=== PATIENT | male | born 1955 | race Caucasian/White ===

== ENCOUNTER 2020-11-01 21:59 | Inpatient (IN) | payer MEDICARE, OTHER ==
[~2020-11-01] VITALS: Ht 182.9 cm; Wt 75.3 kg
[2020-11-01] MEDS ORDERED: IV NORMAL SALINE 1000 ML BAG IV ONE (22:30)
[2020-11-01] MEDS ORDERED: DILTIAZEM HCL 25 MG IV IV ONE ×2 (22:30→22:45)
--- NOTE | 2020-11-01 22:30 | NUR ---
Pt aox1, Pt. began having rapid heart rate 180-190's with fluctuating blood pressure first hypotension then hypertension with spo2 desatting to 84% on RA. Placed pt. on 2L oxygen NC. MD Blake notified immediately.
[2020-11-01] MEDS ORDERED: NOREPINEPHRINE BITARTRATE 4 MG/4 ML VIAL IV ONE (22:31)
[2020-11-01] MEDS ORDERED: DILTIAZEM HCL 50 MG IV ONE (22:31)
[2020-11-01] MEDS ORDERED: AMIODARONE HCL 150 MG/3 ML VIAL IV ONE ×2 (22:55→23:04)
[2020-11-01 22:57] LABS: HEMATOCRIT 40.7 % (36.7-47.1); MEAN CORPUSCULAR HEMOGLOBIN 31.6 uug (23.8-33.4); MEAN CORPUSCULAR VOLUME 95.5 fL (73.0-96.2); PLATELET COUNT (AUTO) 154 K/uL (152-348)
[2020-11-01 23:09] LABS: CREATININE 1.6 mg/dL (0.6-1.3); POTASSIUM 4.2 mmol/L (3.5-5.1)
[2020-11-01] MEDS ORDERED: HEPARIN/D5W 25000 UNITS/500 ML BAG IV ONE (23:15)
[2020-11-01 23:21] LABS: BILIRUBIN,DIRECT 0.1 mg/dL (0.0-0.2); BILIRUBIN,TOTAL 0.4 mg/dL (0.2-1.0); TOTAL PROTEIN, SERUM 6.9 g/dL (6.4-8.2)
[2020-11-01 23:24] LABS: *OCCULT BLOOD STOOL NEGATIVE (NEGATIVE)
[2020-11-01] MEDS ORDERED: HEPARIN SODIUM,PORCINE 5,000 UNITS/ML VIAL ONE (23:32)
[2020-11-01] MEDS: HEPARIN/D5W DRIP 500 ML IV PRN (23:33)
[2020-11-01] MEDS ORDERED: HEPARIN/D5W DRIP 500 ML ONE (23:33)
--- NOTE | 2020-11-01 23:40 | NUR ---
Pt. converted to NSR, BP stabilized, and pt. maintaining o2 sat >94 with 3L nasal cannula. Monitoring patient closely.
[2020-11-01] MEDS ORDERED: LORAZEPAM 2 MG/1 ML VIAL IV ONE (23:45)
[2020-11-01] MEDS ORDERED: LORAZEPAM 2 MG/1 ML VIAL ONE (23:46)
[2020-11-01] MEDS ORDERED: NICO1PAT35 TD (23:50)
[2020-11-01] MEDS ORDERED: ASCO500T10 PO (23:50)
[2020-11-01] MEDS ORDERED: MAGN400O6 PO (23:50)
[2020-11-01] MEDS ORDERED: NA P133E RC (23:50)
[2020-11-01] MEDS ORDERED: BENZ1TAB7 PO (23:50)
[2020-11-01] MEDS ORDERED: LEVE500T9 PO (23:50)
[2020-11-01] MEDS ORDERED: MIRT-93 PO (23:50)
[2020-11-01] MEDS ORDERED: BISA10SU61 RC (23:50)
[2020-11-01] MEDS ORDERED: MULT-416 PO (23:50)
[2020-11-01] MEDS ORDERED: MAG-151 PO (23:50)
[2020-11-01] MEDS ORDERED: prostat PO (23:50)
[2020-11-01] MEDS ORDERED: ACET-2154 PO (23:50)
[2020-11-01] MEDS ORDERED: ZINC1CAP2 PO (23:50)
[2020-11-01] MEDS ORDERED: FERR325T28 PO (23:50)
[2020-11-01] MEDS ORDERED: PHEN100C4 PO (23:50)
[2020-11-01] MEDS ORDERED: MENT3.5O TP (23:50)
--- NOTE | 2020-11-01 23:50 | NUR ---
Pt became agitated, was yelling for his mother and saying "please stop giving me heroin, I don't want heroin" and gesturing to his IVs. I attempted to reorient pt, explained he was in the hospital, he wasn't getting heroine, he was safe and getting medication because he was sick. Pt. was unable to comprehend. MD Blake was notified.
[2020-11-02] VITALS (18 sets, daily range): BP systolic 99–165; BP diastolic 51–80
[2020-11-02] MEDS ORDERED: OLANZAPINE 10 MG VIAL IM ONE ×2
--- NOTE | 2020-11-02 00:05 | NUR ---
Pt. attempted to pull on IV's and his telemetry monitor. He then pulled off nasal cannula and when I attempted to put it back on the patient threw up his arms and yelled "Get the fuck away from me bitch, I will shoot you, I have nothing left to lose." MD Blake made aware.
[2020-11-02] MEDS ORDERED: LORAZEPAM 2 MG/1 ML VIAL IV ONE (00:30)
[2020-11-02] MEDS ORDERED: LORAZEPAM 2 MG/1 ML VIAL ONE (00:35)
--- NOTE | 2020-11-02 01:20 | NUR ---
Pt. no longer agitated, able to remain calm and will be taken to CT.
--- NOTE | 2020-11-02 01:25 | NUR ---
Pt taken to CT by myself and the ekg monitor, with continuous heart monitoring in place. Pt. vitals currently stable.
[2020-11-02] MEDS ORDERED: AMIODARONE HCL IV 150 MG in IV DEXTROSE 5% 100 ML IV ONE (01:30)
[2020-11-02] MEDS ORDERED: AMIODARONE HCL IV 450 MG in IV DEXTROSE 5% 250 ML IV PRN (01:30)
--- NOTE | 2020-11-02 01:40 | NUR ---
Pt returned from CT. Resting in bed, no changes in condition. VSS. Will continue to monitor.
--- NOTE | 2020-11-02 01:45 | NUR ---
Dr. Duarte at bedside to evaluate patient.
[2020-11-02] MEDS ORDERED: ACETAMINOPHEN 325 MG TABLET PO PRN (02:00)
[2020-11-02] MEDS ORDERED: IV NS 1000 ML 1,000 ML IV PRN (02:00)
[2020-11-02] MEDS ORDERED: Z GUARD REMEDY PASTE 57 GM TUBE TOP PRN ×2 (02:00→04:00)
[2020-11-02] MEDS ORDERED: MAGNESIUM HYDROXIDE 30 ML LIQUID UDC PO PRN (02:00)
[2020-11-02] MEDS ORDERED: ONDANSETRON 4 MG/2 ML VIAL IV PRN (02:00)
[2020-11-02] MEDS ORDERED: FLEET ENEMA 133 ML BOTTLE RC PRN (02:00)
[2020-11-02] MEDS ORDERED: BISACODYL 10 MG SUPP.RECT RC PRN (02:00)
[2020-11-02] MEDS ORDERED: DEXTROSE 50% 50 ML DISP.SYRIN IV PRN (02:15)
[2020-11-02] MEDS ORDERED: SWABABLE VALVE TRANSFER SET EA MC ONE (02:39)
[2020-11-02] MEDS ORDERED: IV NORMAL SALINE 250 ML IV ONE (02:40)
[2020-11-02] MEDS ORDERED: IOHEXOL 350 100 ML INFUS..BTL ONE (02:40)
--- NOTE | 2020-11-02 02:44 | NUR ---
Gave report to GAVIOTA Hansen. Pt to go to CCU room 2.
[2020-11-02] MEDS: HEPARIN/D5W DRIP 500 ML IV PRN ×3 (03:15→17:28)
[2020-11-02] MEDS: AMIODARONE HCL IV 450 MG in IV DEXTROSE 5% 250 ML IV PRN ×2 (03:15→15:21)
--- NOTE | 2020-11-02 03:15 | NUR ---
Received patient from ER via [facility]. Patient is A/Ox1. Patient is here for LLE DVT, but was also found to have bilateral lung PE. Patient also went into a-fib RVR in the ER. Patient arrived with left forearm AC running Heparin @1328units/hr. Patient has right AC 18g that is infiltrated this I removed. SR on the monitor, BP stable, 98% on 2L NC, no SOB or signs of distress. Patient has numerous wounds, intact blisters on the mid-back, sacrum, and R&L buttocks. Bilateral R&L heel DTI, left lateral foot DTI, Left lateral malleolus DTI, Left medial malleolus scab. Patient arrived soaked in urine, patient bathed and placed in a gown. Dean catheter inserted, new 18g peripheral IV line placed in the right wrist running amiodarone @1mg/min. PICC line ordered, KCI mattress ordered, Wound consult ordered.
[2020-11-02] MEDS ORDERED: HEPARIN SODIUM,PORCINE 5,000 UNITS/ML VIAL IV ONE (06:00)
[2020-11-02] MEDS: PANTOPRAZOLE SODIUM 40 MG TABLET.DR PO SCH (06:42)
--- NOTE | 2020-11-02 07:00 | NUR ---
Assumed care of patient at this time Heparin was not scanned - call from pharmacy to scan and input units/hr in IV Spreadsheet - Running at 1478 units/hr at this time
[2020-11-02] MEDS: BLOOD SUGAR DIAGNOSTIC 1 EACH STRIP VI SCH ×4 (08:03→21:27)
[2020-11-02] MEDS: PHENYTOIN SODIUM EXTENDED 100 MG CAPSULE.SA PO SCH ×3 (09:00→17:06)
[2020-11-02] MEDS: NICOTINE 21 MG/24HR PATCH TD SCH (09:00)
[2020-11-02] MEDS: levETIRAcetam 500 MG TABLET PO SCH ×2 (09:29→17:14)
[2020-11-02] MEDS: ASCORBIC ACID 500 MG TABLET PO SCH ×3 (09:29→17:10)
[2020-11-02] MEDS: ZINC SULFATE 220 MG CAPSULE PO SCH (09:29)
[2020-11-02] MEDS ORDERED: HEPARIN SODIUM,PORCINE 5,000 UNITS/ML VIAL IV PRN ×2 (10:00)
--- NOTE | 2020-11-02 10:02 | NUR ---
WOUND CARE CONSULT: PT PRESENTS WITH MULTIPLE DEEP TISSUE INJURIES TO FEET AND HEELS WELL SCARRING TO SACRUM, LOW BACK AND MIDBACK, PRESENT ON ADMISSION. DPM CONSULT CALLED TO DR MICHAEL. RECOMMENDATIONS MADE FOR SKIN PROTECTION. DISCUSSED WITH NURSING STAFF. FIRST STEP LOW AIRLOSS MATTRESS IS ON ORDER. MD IN AGREEMENT WITH PLAN OF CARE. RAM CATH NOTED.
--- NOTE | 2020-11-02 10:47 | NUR ---
Dr. Benitez in unit to assess patient
[2020-11-02] MEDS: DOXYCYCLINE HYCLATE IV 100 MG in IV DEXTROSE 5% 100 ML IV SCH ×2 (11:13→21:22)
[2020-11-02] MEDS: INSULIN REGULAR, HUMAN 300 UNIT/3 ML VIAL SQ PRN (11:56)
[2020-11-02 12:11] LABS: ABG BASE EXCESS 1.6 mmol/L; ABG HCO3 25.5 mmol/L; ABG PCO2 37.5 mmHg (35.0-45.0); ABG SITE LEFT RADIAL; ABG TOTAL HEMOGLOBIN 11.9 G/dL (13.5-18.0); COHb 0.9 % (0.5-1.5); MetHb 0.3 % (0.0-1.5); O2Hb 96.1 % (94.0-97.0); VENT MODE Nasal Cannula
[2020-11-02] MEDS: QUETIAPINE FUMARATE 25 MG TABLET PO PRN ×2 (12:16→23:16)
--- NOTE | 2020-11-02 17:53 | NUR ---
Per pharmacy, because PTT was "no change" at 1200 - next PTT draw will be 0700 of 11/03/2020 No signs of bleedings noted
--- NOTE | 2020-11-02 18:34 | NUR ---
Patient A&Ox1. Emotionally labile but redirectable. NSR throughout shift with PVCs. BPs stable w/o pressor support. Afebrile. Saturations >94% on 2L NC & on Room air now. No sob, no labored breathing. GI/: small bm x 1. 1L clear yellow urine output. Now on pureed/thin diet - good appetite. Meds crushed. Heparin drip running at 1478 units/hr at this time. VSS.
--- NOTE | 2020-11-02 19:30 | NUR ---
Report received. Patient admitted 11/01/20 DX: Aflutter with RVR and PE. Patient AA, cooperative at this time although as per report patient is emotionally labile. With extensive psyche history. NAD noted. 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 On continuous Heparin drip at 1478 units/H via IVAC pump. No signs of bleeding. Amiodarone drip resumed at 0.5 mg/min, was off when patient was received. Assessment completed. Addendum: 11/02/20 at 2340 by MICHAEL KAPADIA RN Amended: Links added.
--- NOTE | 2020-11-02 20:15 | NUR ---
Spoke to Dr. Lucas re: Amiodarone drfrancisco (24 H drip protocol will be completed by 0). Order received to continue drip till MD sees patient tomorrow. Addendum: 11/02/20 at 2328 by MICHAEL KAPADIA RN Amended: Links added. Addendum: 11/02/20 at 2340 by MICHAEL KAPADIA RN Amended: Links added.
[2020-11-02] MEDS: BENZTROPINE MESYLATE 1 MG TABLET PO SCH (21:23)
[2020-11-02] MEDS: MIRTAZAPINE 15 MG TABLET PO SCH (21:23)
--- NOTE | 2020-11-02 21:23 | NUR ---
Able to take po meds without difficulty. Patient watching TV. Addendum: 11/02/20 at 2342 by MICHAEL KAPADIA RN Amended: Links added.
--- NOTE | 2020-11-02 23:15 | NUR ---
"Leave me alone!" patient yells when asked to be turned. Mildly agitated; medicated with Seroquel. Addendum: 11/02/20 at 2325 by MICHAEL KAPADIA RN Amended: Links added. Addendum: 11/02/20 at 2325 by MICHAEL KAPADIA RN Amended: Links added.
[2020-11-03] VITALS (13 sets, daily range): BP systolic 87–141; BP diastolic 38–72
[2020-11-03 05:39] LABS: HEMATOCRIT 37.5 % (36.7-47.1); MEAN CORPUSCULAR HEMOGLOBIN 31.8 uug (23.8-33.4); MEAN CORPUSCULAR VOLUME 95.9 fL (73.0-96.2); PLATELET COUNT (AUTO) 164 K/uL (152-348)
[2020-11-03 06:08] LABS: THYROID STIMULATING HORMONE 1.937 mIU/mL (0.358-3.740)
[2020-11-03] MEDS: PANTOPRAZOLE SODIUM 40 MG TABLET.DR PO SCH (06:17)
[2020-11-03 06:24] LABS: CREATININE 1.3 mg/dL (0.6-1.3); MAGNESIUM 1.5 mg/dL (1.8-2.4); PHOSPHOROUS 3.7 mg/dL (2.5-4.9); POTASSIUM 3.6 mmol/L (3.5-5.1)
[2020-11-03] MEDS: BLOOD SUGAR DIAGNOSTIC 1 EACH STRIP VI SCH ×4 (06:55→20:56)
--- NOTE | 2020-11-03 07:10 | NUR ---
Received pt. AAOx2. vitals stable SBP of 90/50, HR of 80 on Room air with saturation of 91%. slightly tachypneic. On heparin drip running at 1628 units/hr. with last ptt of 41.9 Dean to gravity and currently. sacrum redness and Petar. BLE with DTI"s pt. on first strep mattress. Will continue to monitor
[2020-11-03] MEDS: levETIRAcetam 500 MG TABLET PO SCH ×2 (08:16→16:14)
[2020-11-03] MEDS: ASCORBIC ACID 500 MG TABLET PO SCH ×3 (08:16→16:14)
[2020-11-03] MEDS: ZINC SULFATE 220 MG CAPSULE PO SCH (08:16)
[2020-11-03] MEDS: NICOTINE 21 MG/24HR PATCH TD SCH (08:20)
[2020-11-03] MEDS: PHENYTOIN SODIUM EXTENDED 100 MG CAPSULE.SA PO SCH ×4 (08:21→20:47)
[2020-11-03] MEDS: DOXYCYCLINE HYCLATE IV 100 MG in IV DEXTROSE 5% 100 ML IV SCH ×2 (08:22→21:17)
[2020-11-03] MEDS ORDERED: POTASSIUM CHLORIDE 20 MEQ POWDER PACKET GT ONE ×2 (08:45→09:15)
[2020-11-03] MEDS ORDERED: AMIODARONE HCL 200 MG TABLET PO SCH (09:00)
[2020-11-03] MEDS: MAGNESIUM SULFATE/D5W 100 ML IV SCH ×3 (09:11→11:09)
--- NOTE | 2020-11-03 09:41 | NUR ---
Patient seen by risk management specialist Dr. Lucas and as ordered amiodarone drip stopped and placed on oral amiodarone.
--- NOTE | 2020-11-03 09:43 | NUR ---
Patient seen by pulmonary services, Dr. Benitez report given see orders.
--- NOTE | 2020-11-03 10:40 | NUR ---
Patient seen by attending DNP Marilyn Sprague report given orders to down-grade pt to telemetry monitoring received.
[2020-11-03] MEDS: APIXABAN 5 MG TABLET PO SCH ×2 (12:07→21:08)
[2020-11-03] MEDS: GLUCERNA SHAKE 237 ML CAN PO SCH (16:14)
[2020-11-03] MEDS: INSULIN REGULAR, HUMAN 300 UNIT/3 ML VIAL SQ PRN (16:29)
[2020-11-03] MEDS: BENZTROPINE MESYLATE 1 MG TABLET PO SCH (20:46)
[2020-11-03] MEDS: AMIODARONE HCL 200 MG TABLET PO SCH (20:47)
[2020-11-03] MEDS: MIRTAZAPINE 15 MG TABLET PO SCH (20:47)
--- NOTE | 2020-11-03 20:47 | NUR ---
CRUSHED MEDICATION AND GIVEN WITH APPLESAUCE ,HR 90. HOB UP AND ASPIRATION PRECAUTION OBSERVED. PATIENT TOLERATED MEDICATION.
--- NOTE | 2020-11-03 20:56 | NUR ---
ACCU -CHECKED DONE RESULT 121 MG/DL NO COVERAGE NEEDED.
--- NOTE | 2020-11-03 21:17 | NUR ---
DUE VIBRAMYCIN ANTIBIOTIC 100 MG IVPB GIVEN AND CHECKED MIDLINE PATENT . FLUTED MIDLINE.
[2020-11-03] MEDS: QUETIAPINE FUMARATE 25 MG TABLET PO PRN (21:18)
--- NOTE | 2020-11-03 21:18 | NUR ---
JRN SEROQUEL GIVEN PATIENT TALKING TO SELF AND TO HIS SURROUNDING AND TO THE WALL .
[2020-11-04 00:33] VITALS: BP 118/75
--- NOTE | 2020-11-04 02:00 | NUR ---
sleeping in bed ,no distress noted .
[2020-11-04 04:00] VITALS: BP 91/54
[2020-11-04] MEDS: PANTOPRAZOLE SODIUM 40 MG TABLET.DR PO SCH (06:07)
--- NOTE | 2020-11-04 06:16 | NUR ---
uneventful night patient sleep most of the night .patient had bm x1 medium in amt . labor contract analyst changed soiled linens and gown .
[2020-11-04 06:35] LABS: HEMATOCRIT 34.1 % (36.7-47.1); MEAN CORPUSCULAR HEMOGLOBIN 32.1 uug (23.8-33.4); MEAN CORPUSCULAR VOLUME 94.4 fL (73.0-96.2); PLATELET COUNT (AUTO) 201 K/uL (152-348)
[2020-11-04] MEDS: BLOOD SUGAR DIAGNOSTIC 1 EACH STRIP VI SCH ×4 (06:38→20:47)
--- NOTE | 2020-11-04 06:44 | NUR ---
FINGERSTICK DONE 109 NO COVERAGE NEEDED .
[2020-11-04 06:59] LABS: CREATININE 1.3 mg/dL (0.6-1.3); MAGNESIUM 1.8 mg/dL (1.8-2.4); POTASSIUM 4.3 mmol/L (3.5-5.1)
--- NOTE | 2020-11-04 07:30 | NUR ---
Patient is alert/oriented x4. denies pain. No chest pain identified. Frequent visual check done. Kept call light within reach. Assisted with ADLs. All needs attended. Kept environment safe. All due meds given as ordered. Will monitor. Addendum: 11/04/20 at 1230 by May LARA RN Patient is confused not alert. Disregard previous notes. PRN pain medication given at the start of the shift. BS 146mg/dL, insulin sliding scale given as ordered. Offloaded feet, turned and reposition for perfusion. Will continue to monitor.
[2020-11-04 08:18] VITALS: BP 113/71
[2020-11-04] MEDS: NICOTINE 14 MG/24HR PATCH TD SCH (08:30)
[2020-11-04] MEDS: DOXYCYCLINE HYCLATE IV 100 MG in IV DEXTROSE 5% 100 ML IV SCH ×2 (08:30→20:40)
[2020-11-04] MEDS: PHENYTOIN SODIUM EXTENDED 100 MG CAPSULE.SA PO SCH ×4 (08:31→21:02)
[2020-11-04] MEDS: levETIRAcetam 500 MG TABLET PO SCH ×2 (08:31→16:25)
[2020-11-04] MEDS: AMIODARONE HCL 200 MG TABLET PO SCH ×2 (08:31→20:40)
[2020-11-04] MEDS: ASCORBIC ACID 500 MG TABLET PO SCH ×3 (08:31→16:25)
[2020-11-04] MEDS: ZINC SULFATE 220 MG CAPSULE PO SCH (08:32)
[2020-11-04] MEDS: APIXABAN 5 MG TABLET PO SCH ×2 (08:35→20:41)
[2020-11-04] MEDS: GLUCERNA SHAKE 237 ML CAN PO SCH ×3 (08:36→16:25)
[2020-11-04] MEDS: HYDROCODONE/APAP 5-325MG TABLET PO PRN ×2 (08:58→21:06)
--- NOTE | 2020-11-04 09:00 | NUR ---
Patient was given PRN pain medication at the start of the shift. Patient tolerated food intake, no coughing noted during feeding. WIll continue to monitor.
[2020-11-04 11:00] VITALS: BP 104/52
[2020-11-04] MEDS: INSULIN REGULAR, HUMAN 300 UNIT/3 ML VIAL SQ PRN (12:08)
[2020-11-04 16:00] VITALS: BP 115/66
--- NOTE | 2020-11-04 16:30 | NUR ---
Accucheck 115mg/dL, no insulin coverage needed as ordered.
--- NOTE | 2020-11-04 19:30 | NUR ---
RECEIVED PATIENT FROM THE MEDICAL SURGICAL FLOOR , REPORT FROM MAY ,PATIENT STILL TELEMETRY STATUS -OVERFLOW . PATIENT AWAKE ,ALERT ANSWER SIMPLE QUESTIONS HISTORY OF PSYCH DISORDER .PATIENT ABLE TO VERBALIZED NEEDS . CONNECTED TO MONITOR AND ADVISED TO USED THE CALL BLUE ,PLACED WITH IN REACH .
--- NOTE | 2020-11-04 19:34 | NUR ---
No distress identified during the shift. Frequent visual check done. Kept call light within reach. Assisted with ADLs. All needs attended. Kept environment safe. All due meds given as ordered. Will endorse to the next shift for continuity of care.
[2020-11-04 20:00] VITALS: BP 103/64
--- NOTE | 2020-11-04 20:40 | NUR ---
DUE MEDICATION GIVEN CRUSHED MEDICATION AND TOLERATED WITH APPLESAUCE , HOB UP UP AND ASPIRATION PRECAUTION OBSERVED .
[2020-11-04] MEDS: QUETIAPINE FUMARATE 25 MG TABLET PO PRN (20:54)
[2020-11-04] MEDS: BENZTROPINE MESYLATE 1 MG TABLET PO SCH (20:56)
[2020-11-04] MEDS: MIRTAZAPINE 15 MG TABLET PO SCH (20:56)
--- NOTE | 2020-11-04 21:06 | NUR ---
PATIENT YELLING PAIN ,PAIN, PAIN GIVEN PAIN MEDICATION NORCO PRN.
[2020-11-05 00:57] VITALS: BP 96/52
[2020-11-05 03:32] VITALS: BP 91/40
[2020-11-05 05:10] LABS: HEMATOCRIT 37.6 % (36.7-47.1); MEAN CORPUSCULAR HEMOGLOBIN 31.1 uug (23.8-33.4); MEAN CORPUSCULAR VOLUME 95.6 fL (73.0-96.2); PLATELET COUNT (AUTO) 218 K/uL (152-348)
[2020-11-05 05:20] LABS: CREATININE 1.3 mg/dL (0.6-1.3); MAGNESIUM 1.6 mg/dL (1.8-2.4); PHOSPHOROUS 3.7 mg/dL (2.5-4.9); POTASSIUM 4.2 mmol/L (3.5-5.1)
[2020-11-05] MEDS: PANTOPRAZOLE SODIUM 40 MG TABLET.DR PO SCH (07:14)
[2020-11-05] MEDS: BLOOD SUGAR DIAGNOSTIC 1 EACH STRIP VI SCH ×4 (07:30→21:39)
[2020-11-05 08:00] VITALS: BP 98/61
[2020-11-05] MEDS: levETIRAcetam 500 MG TABLET PO SCH ×2 (08:16→16:41)
[2020-11-05] MEDS: ZINC SULFATE 220 MG CAPSULE PO SCH (08:17)
[2020-11-05] MEDS: APIXABAN 5 MG TABLET PO SCH ×2 (08:17→21:31)
[2020-11-05] MEDS: ASCORBIC ACID 500 MG TABLET PO SCH ×3 (08:17→16:41)
[2020-11-05] MEDS: DOXYCYCLINE HYCLATE IV 100 MG in IV DEXTROSE 5% 100 ML IV SCH ×2 (08:18→21:29)
[2020-11-05] MEDS: PHENYTOIN SODIUM EXTENDED 100 MG CAPSULE.SA PO SCH ×4 (08:19→21:32)
[2020-11-05] MEDS: GLUCERNA SHAKE 237 ML CAN PO SCH ×3 (08:20→16:42)
[2020-11-05] MEDS: AMIODARONE HCL 200 MG TABLET PO SCH ×2 (08:22→21:28)
[2020-11-05] MEDS ORDERED: IV NORMAL SALINE 500 ML IV ONE (08:30)
[2020-11-05] MEDS: NICOTINE 14 MG/24HR PATCH TD SCH (08:54)
--- NOTE | 2020-11-05 10:00 | NUR ---
Patient seen by attending Antonio Sprague.
[2020-11-05] MEDS: MAGNESIUM SULFATE/D5W 100 ML IV SCH ×2 (10:30→11:32)
--- NOTE | 2020-11-05 11:45 | NUR ---
Patient refusing accu-check Attending notified.
[2020-11-05 12:00] VITALS: BP 97/55
--- NOTE | 2020-11-05 12:27 | NUR ---
Received pt. in bed sleeping intermittently. AAOx1. vitals of HR 85 sbp of 98/81 no respiratory distress on Ra with saturation above 91%. IV line access patent. Will continue to monitor.
[2020-11-05 16:00] VITALS: BP 115/69
--- NOTE | 2020-11-05 16:00 | NUR ---
patient refusing PM. care.
--- NOTE | 2020-11-05 18:25 | NUR ---
Left pt in bed sleeping intermittently. Hemodynamically stable with heart rate in the 70's. sbp of 101/62. On 2Liters NC saturation above 65% no tachypnea. Neuro-rosenberg AAOx1 refusing nursing procedures on/off attending aware. Tolerating diet well with no n/v/d. Dean to gravity with adequate UOP see I&O for details. Side rails up X3 at all times, no injury or skin breakdown sustained. Will endorse to incoming shift for continuity of care.
--- NOTE | 2020-11-05 19:30 | NUR ---
ROUNDS MADE AND PATIENT IN BED RESTING NO RESPIRATORY DISTRESS NOTED BREATHING EVEN AND UNLABORED . HR SR 88 WITH OCCASIONAL PVCS .SATURATION 96% RR 24 .
[2020-11-05 20:09] VITALS: BP 115/64
--- NOTE | 2020-11-05 21:00 | NUR ---
due medication crushed and given with applesauce patient tolerated, aspiration precaution observed . hob up .
[2020-11-05] MEDS: MIRTAZAPINE 15 MG TABLET PO SCH (21:28)
[2020-11-05] MEDS: BENZTROPINE MESYLATE 1 MG TABLET PO SCH (21:29)
[2020-11-05] MEDS: QUETIAPINE FUMARATE 25 MG TABLET PO PRN (21:42)
[2020-11-05] MEDS: HYDROCODONE/APAP 5-325MG TABLET PO PRN (21:43)
--- NOTE | 2020-11-05 22:15 | NUR ---
TURNED AND REPOSITION PATIENT AND OFFLOADED BACK AND BILATERAL HEELS .
[2020-11-06 00:23] VITALS: BP 104/64
--- NOTE | 2020-11-06 00:41 | NUR ---
sleeping in bed easily arousable bp 104/64. hr 79 saturation 98% rr 17. no s/s of pain . empty f/c with yellowish urine ,650 ml .
--- NOTE | 2020-11-06 03:30 | NUR ---
patient asked for water given tolerated .
[2020-11-06 04:02] VITALS: BP 105/61
--- NOTE | 2020-11-06 04:30 | NUR ---
bilateral heel dressing done ,applied Mepilex and wrapped with Kerlix and secure with tape .
[2020-11-06 05:25] LABS: MEAN CORPUSCULAR HEMOGLOBIN 31.1 uug (23.8-33.4); PLATELET COUNT (AUTO) 263 K/uL (152-348)
[2020-11-06 05:34] LABS: POTASSIUM 4.5 mmol/L (3.5-5.1)
[2020-11-06 05:35] LABS: CREATININE 1.3 mg/dL (0.6-1.3); MAGNESIUM 1.6 mg/dL (1.8-2.4); PHOSPHOROUS 4.4 mg/dL (2.5-4.9)
[2020-11-06] MEDS: PANTOPRAZOLE SODIUM 40 MG TABLET.DR PO SCH (06:07)
--- NOTE | 2020-11-06 06:21 | NUR ---
am care done at first patient refused but RN told him his going to given him something to drink and something to eat to agress ,changed soiled linens and gown .oral care done and Dean care done .
--- NOTE | 2020-11-06 08:00 | NUR ---
received change of shift report, pt a/o to name. pt on tele monitor NSR with PVC, pt on air loss mattress. pt on aspiration precaution, voiding via hodgson. IV access on the right FA 18g, right FA 20g, left FA 22g, and DOMO midline. call light within reach, will continue to monitor
[2020-11-06] MEDS: BLOOD SUGAR DIAGNOSTIC 1 EACH STRIP VI SCH ×2 (08:14→12:19)
[2020-11-06] MEDS: MAGNESIUM SULFATE/D5W 100 ML IV SCH ×2 (08:16→09:50)
[2020-11-06] MEDS: ZINC SULFATE 220 MG CAPSULE PO SCH (08:19)
[2020-11-06] MEDS: ASCORBIC ACID 500 MG TABLET PO SCH ×2 (08:20→12:33)
[2020-11-06] MEDS: NICOTINE 14 MG/24HR PATCH TD SCH (08:20)
[2020-11-06] MEDS: levETIRAcetam 500 MG TABLET PO SCH (08:20)
[2020-11-06] MEDS: GLUCERNA SHAKE 237 ML CAN PO SCH ×2 (08:20→12:32)
[2020-11-06] MEDS: APIXABAN 5 MG TABLET PO SCH (08:20)
[2020-11-06] MEDS: PHENYTOIN SODIUM EXTENDED 100 MG CAPSULE.SA PO SCH ×2 (08:20→12:33)
[2020-11-06] MEDS: AMIODARONE HCL 200 MG TABLET PO SCH (08:21)
[2020-11-06] MEDS: DOXYCYCLINE HYCLATE IV 100 MG in IV DEXTROSE 5% 100 ML IV SCH (10:59)
[2020-11-06] MEDS: INSULIN REGULAR, HUMAN 300 UNIT/3 ML VIAL SQ PRN (12:27)
[2020-11-06] MEDS ORDERED: QUET25TA PO (13:03)
[2020-11-06] MEDS ORDERED: APIX5TAB PO (13:03)
[2020-11-06] MEDS ORDERED: AMIO200T6 PO (13:03)
[2020-11-06] MEDS ORDERED: PHEN100C4 PO (13:03)
--- NOTE | 2020-11-06 16:28 | NUR ---
pt discharged back to [facility] via ambulance. pt a/ox1, on room air, no signs of distress, no reports of pain. pt cooperative, ID band, IV access and hodgson removed prior to discharge. all education provided, paperwork and pt information given to auto striper. report called to EMMANUEL Luna at [phone].
[2020-11-10] MEDS ORDERED: APIXABAN 5 MG TABLET PO SCH (09:00)
== END 2020-11-06 16:30 | DRG 175 ==
LOC: ER 22:02 → CCU 11-02 03:06 → TELE3 11-03 18:50 → CCU 11-04 19:43
PROVIDERS: ATTEND Nurse Practitioner Acute Care
PROC: 05H633Z Insertion of Infusion Device into Left Subclavian Vein, Percutaneous Approach (ICD-10-PCS; principal; 2020-11-02)
PROC: B547ZZA Ultrasonography of Left Subclavian Vein, Guidance (ICD-10-PCS; 2020-11-02)
DX: I26.99 Other pulmonary embolism without acute cor pulmonale (principal); N17.0 Acute kidney failure with tubular necrosis; I48.92 Unspecified atrial flutter; G93.40 Encephalopathy, unspecified; E44.1 Mild protein-calorie malnutrition; I82.402 Acute embolism and thrombosis of unspecified deep veins of left lower extremity; G40.909 Epilepsy, unspecified, not intractable, without status epilepticus; F31.9 Bipolar disorder, unspecified; Z74.01 Bed confinement status; Z20.822 Contact with and (suspected) exposure to COVID-19; M20.42 Other hammer toe(s) (acquired), left foot; M20.41 Other hammer toe(s) (acquired), right foot; K21.9 Gastro-esophageal reflux disease without esophagitis; N18.9 Chronic kidney disease, unspecified; E88.09 Other disorders of plasma-protein metabolism, not elsewhere classified; E04.1 Nontoxic single thyroid nodule; E11.22 Type 2 diabetes mellitus with diabetic chronic kidney disease; D72.829 Elevated white blood cell count, unspecified; F41.9 Anxiety disorder, unspecified; I48.0 Paroxysmal atrial fibrillation; F20.9 Schizophrenia, unspecified; I12.9 Hypertensive chronic kidney disease with stage 1 through stage 4 chronic kidney disease, or unspecified chronic kidney disease; L89.626 Pressure-induced deep tissue damage of left heel; L89.616 Pressure-induced deep tissue damage of right heel; L89.896 Pressure-induced deep tissue damage of other site; R23.4 Changes in skin texture; Z88.6 Allergy status to analgesic agent
CPT/HCPCS: 36415; 36600; 70030-TC; 71045; 71275; 83605; 83735; 84100; 84443; 85025; 85730; 87040; 93005; 93307; A4663; A6209; G0378; J0282; J1644; J1815; J2060; J2358; J3475; J3490; J7030; J7040; J7050; J7060; Q9967